=== PATIENT | male | born 1995 | race Caucasian/White ===

== ENCOUNTER 2017-01-08 15:07 | Outpatient (CLI) | payer OTHER ==
--- NOTE | 2017-01-08 16:23 | XRAY Report ---
EXAM: RIGHT HAND RADIOGRAPHY EXAM DATE: 01/08/2017 03:35 PM. CLINICAL HISTORY: COUGH,R HAND PAIN. COMPARISON: None. TECHNIQUE: 3 views. FINDINGS: Bones: There is a minimally displaced fracture at the base of the right fifth metacarpal with fractur e planes extending into the joint space. Old healed fracture of the distal aspect of the right fifth metacarpal. Joints: Normal. No subluxations. Soft Tissues: Normal. No soft tissue swelling. IMPRESSION: Minimally displaced intra-articular fracture at the base of the fifth metacarpal. [facility] Referring Provider Line: [phone] SITE ID: [id number]
--- NOTE | 2017-01-08 16:24 | XRAY Report ---
EXAM: CHEST RADIOGRAPHY EXAM DATE: 01/08/2017 03:34 PM. CLINICAL HISTORY: COUGH,R HAND PAIN. COMPARISON: None. TECHNIQUE: 2 views. FINDINGS: Lungs/Pleura: No focal opacities evident. No pleural effusion. No pneumothorax. Normal volumes. Mediastinum: Heart and mediastinal contours are unremarkable. Other: None. IMPRESSION: No focal consolidation. [facility] Referring Provider Line: [phone] SITE ID: [id number]
== END 2017-01-08 15:08 | disposition home or self-care (01) ==
LOC: DI 15:07
PROVIDERS: ATTEND Internal Medicine
DX: S62.316A Displaced fracture of base of fifth metacarpal bone, right hand, initial encounter for closed fracture (principal)
CPT/HCPCS: 71020

== ENCOUNTER 2017-07-07 09:50 | Emergency (ER) | payer OTHER, BC ==
[2017-07-07] MEDS ORDERED: ONDANSETRON ODT 4 MG TABLET TL STA (10:18)
[2017-07-07] MEDS ORDERED: HYDROmorphone 1 MG/ML SYRINGE IM STA (10:18)
--- NOTE | 2017-07-07 10:21 | ED Physician Documentation ---
History of Present Illness - Stated complaint Stated Complaint: R SHOULDER INJ - Chief complaint Chief Complaint: Ext Problem - Additonal information Additional information: hx from pt healthy 23 y/o male last ate 8 AM slipped on ladder, grabbed with R hand and caught his wrist with outstretched arm pain and deformity to r shoulder drove himself in Review of Systems Musculoskeletal: reports: Joint pain PD PAST MEDICAL HISTORY - Past Medical History Past Medical History: Yes Respiratory: Asthma - Past Surgical History Past Surgical History: No - Present Medications Home Medications: Ambulatory Orders Medication Instructions Recorded Confirmed No Known Home Medications [No 07/07/17 07/07/17 Known Home Medications] - Allergies Allergies/Adverse Reactions: Allergies Allergy/AdvReac Type Severity Reaction Status Date / Time Penicillins Allergy Hives Verified 07/07/17 10:02 Sulfa (Sulfonamide Allergy Anaphylaxis Verified 07/07/17 10:02 Antibiotics) - Social History Does the pt smoke?: Yes Smoking Status: Current every day smoker Does the pt drink ETOH?: No Does the pt have substance abuse?: No Substance Use and Type: Marijuana - Immunizations Immunizations are current?: Yes - POLST Patient has POLST: No PD ED PE NORMAL - Vitals Vital signs reviewed: Yes - Cardiac Cardiac: RRR - Respiratory Respiratory: No respiratory distress, Clear bilaterally - Extremities Extremities: Other (R shoulder deformity c/w ant dislocation, + sensation to deltoid and all dermatomes of hand, 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, [place], finger ABD, thumbs up and wrist ext all 5/5, + pulses) Results - Vitals Vitals: Vital Signs - 24 hr 07/07/17 09:57 Temperature 36.8 C Heart Rate 62 Respiratory 16 Rate Blood Pressure 101/60 O2 Saturation 98 Oxygen O2 Source Room air - Rads (name of study) shoulder Radiology: See rad report (anterior inferior R shoulder dislocation) shoulder2 Radiology: See rad report (reduced) Procedures - Reduction Body part reduced: Right, Shoulder Fracture or dislocation: Dislocation Anesthesia: Marcaine (enter cc) (10ml 0.5% intra-articular sterile prep) Shoulder reduction technique: Scapular manipulation, Traction - counter tract ( pt had eaten so no sedation, gave dilaudid and intra-articualr marcaine with good effect and able to reduce to tx counter tx, MSV intact, confirmed on rpt xray), Other (Favres) Departure - Departure Clinical Impression: Shoulder dislocation Qualifiers: Encounter type: initial encounter Laterality: right Qualified Code(s): S43.004A - Unspecified dislocation of right shoulder joint, initial encounter Condition: Good Instructions: ED Dislocation Shoulder Redu Follow-Up: Yossi Liang MD [Primary Care Provider] - [facility] [Provider Group] Comments: Wear the sling for comfort and stability. Need to do some gentle range of motion every day to prevent scarring and stiffness in the shoulder joint - recommend leaning over and doing small circles right and left. Physical therapy would be very useful - call your insurance company or [employer] inquire how to access that service May work on limited duty status - no use of R shoulder until cleared by orthopedics - estimate at least two weeks Forms: Activity restrictions
[2017-07-07] MEDS ORDERED: BUPIVACAINE 0.5%-EPI 1:200000 PF 10 ML VIAL SUBQ STA (10:32)
[2017-07-07] MEDS ORDERED: ONDANSETRON ODT 4 MG TABLET ONE (10:37)
[2017-07-07] MEDS ORDERED: HYDROmorphone 1 MG/ML SYRINGE ONE (10:37)
--- NOTE | 2017-07-07 10:41 | XRAY Preliminary Report ---
Exam: XR SHOULDER 3 VIEW RT IMPRESSION: 1. Anterior, inferior right shoulder dislocation. 2. No definite fracture demonstrated. [facility] SITE ID: [id number]
--- NOTE | 2017-07-07 10:44 | XRAY Report ---
EXAM: RIGHT SHOULDER RADIOGRAPHY EXAM DATE: 07/07/2017 10:34 AM. CLINICAL HISTORY: R shoulder injury suspect ant dislocation. [place] today. COMPARISON: None. TECHNIQUE: 3 views. FINDINGS: Bones: No definite fractures or bone lesions. Joints: Anterior, inferior glenohumeral dislocation. The acromioclavicular joint appears normal. Soft tissues: The visualized hemithorax is unremarkable. No soft tissue swelling. IMPRESSION: 1. Anterior, inferior right shoulder dislocation. 2. No definite fracture demonstrated. [facility] Referring Provider Line: [phone] SITE ID: [id number]
[2017-07-07] MEDS ORDERED: BUPIVACAINE 0.5%-EPI 1:200000 PF 30 ML VIAL ONE (10:45)
[2017-07-07] MEDS ORDERED: BUPIVACAINE 0.5% PF 30 ML VIAL ONE (10:45)
--- NOTE | 2017-07-07 12:08 | XRAY Preliminary Report ---
Exam: XR SHOULDER 2 VIEW RT IMPRESSION: 1. Interval reduction of the previous dislocation. 2. No fracture demonstrated. [facility] SITE ID: [id number]
--- NOTE | 2017-07-07 12:10 | XRAY Report ---
EXAM: RIGHT SHOULDER RADIOGRAPHY EXAM DATE: 07/07/2017 11:57 AM. CLINICAL HISTORY: Post reduction. COMPARISON: 07/07/2017. TECHNIQUE: 2 views. FINDINGS: Bones: Normal. No fracture or bone lesion. Joints: The glenohumeral and acromioclavicular joints are normal. Soft tissues: The visualized hemithorax is unremarkable. No soft tissue swelling. IMPRESSION: 1. Interval reduction of the previous dislocation. 2. No fracture demonstrated. [facility] Referring Provider Line: [phone] SITE ID: [id number]
[2017-07-07 12:12] VITALS: BP 107/66
== END 2017-07-07 12:27 | disposition home or self-care (01) ==
LOC: ED 09:50
DX: S43.004A Unspecified dislocation of right shoulder joint, initial encounter (principal); W11.XXXA Fall on and from ladder, initial encounter; F17.200 Nicotine dependence, unspecified, uncomplicated
CPT/HCPCS: 23650; 73030; 96372; 99283; J1170; Q0162